=== PATIENT | male | born 1970 ===

== ENCOUNTER → 2017-02-10 | Outpatient (CLI) | payer OTHER | LOC: FIMAGING 15:38 | PROVIDERS: ATTEND Orthopaedic Surgery | DX: M21.761 Unequal limb length (acquired), right tibia (principal) ==

== ENCOUNTER 2017-03-17 11:00 | Day surgery (SDC) | payer OTHER ==
[~2017-03-17 11:00] MED LIST: ceFAZolin 2 GM/SWFI 2 GM/20 ML SYR IVP ONE
[2017-03-17] MEDS ORDERED: LIDOCAINE 1% 2 ML INJ ID PRN (11:11)
[2017-03-17] MEDS ORDERED: LR 1,000 ML IV ONE (11:11)
[2017-03-17 11:27] VITALS: PULSE 84
[2017-03-17] MEDS ORDERED: ceFAZolin 2 GM/SWFI 20 ML SYR IVP ONE (11:33)
[2017-03-17] MEDS ORDERED: BUPIVACAINE 0.25% 30 ML SDV ONE (11:39)
[2017-03-17] MEDS ORDERED: BACITRACIN 50,000 UNITS/10 ML SYR IRR ONE (11:40)
[2017-03-17] MEDS ORDERED: POLYMYXIN B SULFATE 500,000 UNIT/10 ML SYR IRR ONE (11:40)
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
[2017-03-17] MEDS ORDERED: MIDAZOLAM 2 MG/2 ML VIAL ONE (11:55)
[2017-03-17] MEDS ORDERED: fentaNYL 100 MCG/2 ML INJ ONE ×4 (11:56→17:33)
[2017-03-17] MEDS ORDERED: ROPIVACAINE HCL 150 MG/30 ML INJ ONE (11:57)
--- NOTE | 2017-03-17 12:10 | PDHPUP ---
History & Physical Update H&P update statement: This history and physical update is based on an assessment of the patient which was completed after admission or registration (within 24 hours), but prior to the surgery/procedure.
[2017-03-17] MEDS ORDERED: PROPOFOL 200 MG/20 ML VIAL ONE (12:58)
[2017-03-17] MEDS: BUPIVACAINE 0.5% 30 ML SDV ONE ×2 (13:48→16:38)
[2017-03-17] MEDS ORDERED: DESFLURANE 240 ML BOTTLE IH ONE (16:25)
--- NOTE | 2017-03-17 17:01 | POSTOPPROG ---
Post Op Note Date of Operation: 03/17/17 Surgeon: Donald Gaytan Hot Box Spotter: Akash Anesthesiologist: Warm Anesthesia: GET(General Endotracheal) Pre-op Diagnosis: R varus knee Post-op Diagnosis: same Indication: above Procedure: R HTO, HWR Findings: varus Inf/Abcess present in the surg proc area at time of surgery?: No EBL: 50-100
[2017-03-17] MEDS ORDERED: ONDANSETRON 4 MG/2 ML VIAL IVP PRN (17:04)
[2017-03-17] MEDS ORDERED: PROMETHAZINE HCL 25 MG/ML INJ IVP PRN (17:04)
[2017-03-17] MEDS ORDERED: OXYCODONE/APAP 5/325 TAB PO PRN (17:04)
[2017-03-17] MEDS ORDERED: NALOXONE HCL 0.4 MG/ML INJ IVP PRN (17:04)
--- NOTE | 2017-03-17 17:05 | POSTANESTH ---
Post Anesthetic Evaluation Cardiovascular Status: Normal, Stable Respiratory Status: Normal, Stable Level of Consciousness/Mental Status: Can Participate in Eval, Mildly Sleepy, Arousable Pain Control: Adequate, Prn Tx Ordered Nausea/Vomiting Control: Adequate, Prn Tx Ordered
[2017-03-17] MEDS: fentaNYL 100 MCG/2 ML INJ IVP PRN ×2 (17:36→17:44)
[2017-03-17] MEDS ORDERED: HYDROCODONE/APAP 5/325 TAB ONE ×2 (18:14→18:55)
[2017-03-17] MEDS: HYDROCODONE/APAP 5/325 TAB PO PRN ×2 (18:16→19:12)
[2017-03-17] MEDS ORDERED: HYDROmorphONE/DILAUDID 1 MG/ML INJ ONE (19:19)
[2017-03-17] MEDS: HYDROmorphONE/DILAUDID 1 MG/ML INJ IVP PRN ×2 (19:20→19:34)
[2017-03-17 19:39] VITALS: RESP 16
[2017-03-17 20:23] VITALS: BP 112/89
[2017-03-17 20:45] VITALS: TEMP 98.4; O2SAT 94
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
== END 2017-03-17 20:50 | disposition home or self-care (01) ==
LOC: FSGY 11:00
PROVIDERS: ATTEND Orthopaedic Surgery
PROC: 0QPB04Z Removal of Internal Fixation Device from Right Lower Femur, Open Approach (ICD-10-PCS; principal; 2017-03-17 12:30)
PROC: 0QSG04Z Reposition Right Tibia with Internal Fixation Device, Open Approach (ICD-10-PCS; principal; 2017-03-17 12:30)
DX: M21.161 Varus deformity, not elsewhere classified, right knee (principal); M12.561 Traumatic arthropathy, right knee; M21.751 Unequal limb length (acquired), right femur; M21.761 Unequal limb length (acquired), right tibia; Z47.2 Encounter for removal of internal fixation device
CPT/HCPCS: C1713; C1763; J0171; J0690; J1170; J2250; J2704; J2795; J3010